=== PATIENT | male | born 1975 | race Two or more races ===

== ENCOUNTER 2023-02-25 15:13 | Emergency (ER) | payer OTHER ==
[~2023-02-25] VITALS: Ht 185.4 cm; Wt 95.4 kg
[2023-02-25 15:52] VITALS: BP 125/64; PULSE 55; RESP 14; TEMP 97.8; O2SAT 100
== END 2023-02-25 16:12 | disposition home or self-care (01) ==
LOC: ER 15:13
DX: S01.111A Laceration without foreign body of right eyelid and periocular area, initial encounter (principal); W51.XXXA Accidental striking against or bumped into by another person, initial encounter; Y93.67 Activity, basketball; Y92.89 Other specified places as the place of occurrence of the external cause; Y99.8 Other external cause status
CPT/HCPCS: 12013; 99282; J2001